=== PATIENT | female | born 1945 | race Caucasian/White ===

== ENCOUNTER 2019-07-22 18:17 | Observation (INO) ==
[2019-07-22] MEDS ORDERED: *HR* Metoprolol 5 MG/5 ML VIAL IVP ONE (18:48)
--- NOTE | 2019-07-22 19:04 | Emergency Department Note ---
Disposition Clinical Impression: Atrial fibrillation with RVR Hypertension Qualifiers: Hypertension type: unspecified Qualified Code(s): I10 - Essential (primary) hypertension Disposition: Admitted As Inpatient Condition: Good Forms: ED Satisfaction Letter Time of Disposition: 20:38 Arrhythmia/Palpitations HPI - General Chief Complaint: ED Arrhythmia/Palpitations Stated Complaint: A-Fib Time Seen by Provider: 07/22/19 18:24 Source: patient Mode of arrival: private vehicle Limitations: no limitations Nursing Notes Reviewed: Yes Vital Signs Reviewed: Yes - History of Present Illness HPI Narrative: 73-year-old female with a history of hyperlipidemia, prior DVT and PE on Coumadin with a [place] filter placement presents with a complaint of high blood pressure, dizziness and new onset atrial fibrillation. Patient states that her blood pressure has been elevated at home of 170/120. Also reports she felt lightheaded. She saw someone today because for elevated blood pressure and was found to be in A. fib. She was sent here for further management. She reports some chest pain that she describes as heartburn. Denies any shortness of breath. She has a history of DVT and PEs on anticoagulation with a filter in place. No other complaints. Pt Subjective Complaint: atrial fibrillation Associated symptoms: Reports: chest pain. Denies: shortness of breath, nausea, vomiting - Related Data Previous Rx's Medication Instructions Recorded HYDROcodone/Acet 5/325 mg [[place] 1 tab PO Q6H PRN 3 Days #12 tab 05/31/18 5-325 mg] Allergies Allergy/AdvReac Type Severity Reaction Status Date / Time No Known Allergies Allergy Verified 05/31/18 19:27 All systems ED: reviewed and negative except as stated. Constitutional: Denies: fever Cardiovascular: Reports: chest pain. Denies: palpitations Respiratory: Denies: cough, dyspnea Gastrointestinal: Denies: abdominal pain, nausea, vomiting Past Medical History - Past Medical History Attestation: Yes The following information was validated with the patient. Source: patient Medical history: Reports: DVT, pulmonary embolus Psychiatric history: Reports: no psych history - Social History Smoking Status: Never smoker Smokeless Tobacco Status: No Alcohol use: Reports: none Drug use: Reports: none Physical Exam - General Limitations: no limitations General appearance: alert, in no apparent distress - Head Head exam: atraumatic, normocephalic, normal inspection - Eye Eye exam: Present: normal appearance - ENT ENT exam: normal exam - Neck Neck exam: Present: normal inspection - Chest Chest inspection: Present: normal inspection, symmetric chest wall rise - Respiratory Respiratory exam: Present: normal lung sounds bilaterally - Cardiovascular Cardiovascular exam: Present: regular rate, irregular rhythm - Abdominal Exam Abdominal exam: Present: soft, Non-Tender. Absent: tenderness, distention, guar ding, rigidity - Extremities Exam Extremities exam: Present: normal inspection, full ROM - Expanded Upper Extremity Exam Shoulder exam: Present: normal inspection, full ROM Arm exam: Present: normal inspection, full ROM Elbow exam: Present: normal inspection, full ROM Forearm/Wrist exam: Present: normal inspection, full ROM Hand exam: Present: normal inspection, full ROM - Expanded Lower Extremity Exam Hip/Pelvis exam: Present: normal inspection, full ROM Upper leg exam: Present: normal inspection, full ROM Knee exam: Present: normal inspection, full ROM Lower leg exam: Present: normal inspection, full ROM Ankle exam: Present: normal inspection, full ROM Foot/toe exam: Present: normal inspection, full ROM - Skin Skin exam: Present: warm, dry Course Course Narrative: Seen and examined. Vital signs reviewed. Her heart rate is fluctuating 80s to 140s. Her blood pressure started to be hypertensive here. We will give her a dose of Lopressor, EKG, chest x-ray, labs. - Reevaluation(s) Reevaluation #1: Labs are grossly unremarkable. INR is therapeutic. Chest x-ray without acute findings. Patient has remained rate controlled here after Lopressor. She is in to agreement with admission. Vital Signs Temperature 98.4 F 07/22/19 18:25 Pulse Rate 104 07/22/19 18:25 Respiratory Rate 18 07/22/19 18:25 Blood Pressure 171/116 07/22/19 18:25 O2 Sat by Pulse Oximetry 98 07/22/19 18:25 Temperature 98.4 F 07/22/19 18:25 Pulse Rate 86 07/22/19 18:59 Respiratory Rate 17 07/22/19 18:59 Blood Pressure 149/92 07/22/19 18:59 O2 Sat by Pulse Oximetry 96 07/22/19 18:59 Oxygen Delivery Oxygen Delivery Room Air Arrhythmia/Palpitations - [facility] Narrative Medical decision making narrative: 73-year-old female presenting with new-onset atrial fibrillation. She is well- appearing here, stable with 5 mg of Lopressor given for tachycardia which is currently rate controlled. Labs are grossly unremarkable. Patient is admitted to the hospitalist service for A. fib RVR, hypertension, new onset A. fib. - Lab Data Lab results reviewed: Yes I reviewed the patient's lab results. Result diagrams: 07/22/19 18:33 07/22/19 18:33 Lab Results 07/22/19 07/22/19 07/22/19 Range/Units 18:33 18:33 18:33 WBC 6.4 (4.3-11.1) K/mcL RBC 4.60 (3.82-4.97) M/mcL Hgb 13.6 (11.5-15.4) g/dL Hct 42.6 (35.3-44.9) % MCV 92.6 (83.0-100.0) fL MCH 29.6 (28.0-33.3) pg MCHC 31.9 (31.6-35.5) g/dL RDW 14.1 (11.5-14.5) % Plt Count 166 (140-400) K/mcL MPV 9.7 (9.4-12.4) fL Immature Gran % 0.3 (0-4) % Seg Neutrophils % 63.8 % Lymphocytes % 23.7 % Monocytes % 10.5 % Eosinophils % 1.1 % Basophils % 0.6 % Neutrophils # 4.1 (1.6-8.9) K/mcL Lymphocytes # 1.5 (0.6-4.6) K/mcL Monocytes # 0.7 (0.0-1.3) K/mcL Eosinophils # 0.1 (0.0-0.6) K/mcL Basophils # 0.0 (0.0-0.2) K/mcL PT 28.5 H (9.4-12.1) Seconds INR 2.5 APTT 32.6 (26.0-36.0) Seconds Sodium 142 (136-145) mEq/L Potassium 3.8 (3.5-5.1) mEq/L Chloride 106 (98-107) mEq/L Carbon Dioxide 28 (23-29) mEq/L BUN 16 (8-23) mg/dL Creatinine 0.79 (0.60-1.20) mg/dL Est GFR ( Amer) > 60 (> 60) Est GFR (Non-Af Amer) > 60 (> 60) BUN/Creatinine Ratio 20 (6-26) Glucose 91 (70-105) mg/dL Calculated Osmolality 295 (280-300) Calcium 9.9 (8.6-10.3) mg/dL Troponin I < 0.03 (< 0.04) ng/mL TSH 2.839 (0.340-5.600) mcIU/mL - Radiology Data Radiology results reviewed: Yes I reviewed the patient's radiology results. Chest X-Ray 07/22/19 18:33 IMPRESSION: 1. Unchanged enlargement of the cardiomediastinal silhouette. 2. No focal consolidation, pneumothorax, or significant pleural effusion. D/ / Jhonatan Mar MD / Jhonatan Mar MD Interpreting Provider: Jhonatan Mar MD - EKG Data EKG attestation: Yes I reviewed and interpreted this EKG. EKG results narrative: EKG demonstrates atrial fibrillation with rate of 98 beats or minute. Normal axis. Normal intervals. Normal R-wave progression. No gross ST elevations or depressions. No acute ischemic findings. S.Jessica.Mio - Ronda.[email or web address] Situation: Demographics, MOA Background: Presenting Complaint, Relevant PMH, Meds, & Allergies Assessment: Vital Signs, Course and respsone to treatment, Exam Concerns, Patient/Family Expectation, Pertinant Lab Results Recommendation: Barrier(s) to disposition, Recommendation based on pending studies, treatments, or consults S.B.A.RBehzad Report Given to: Dr. Dahlia Jack Repor Time: 20:39
[2019-07-22 19:17] LABS: Basophils % 0.6 %; Eosinophils # 0.1 K/mcL (0.0-0.6); Eosinophils % 1.1 %; Hematocrit 42.6 % (35.3-44.9); Hemoglobin 13.6 g/dL (11.5-15.4); Immature Granulocytes % 0.3 % (0-4); Lymphocytes # 1.5 K/mcL (0.6-4.6); Lymphocytes % 23.7 %; Mean Corpuscular HGB Conc 31.9 g/dL (31.6-35.5); Mean Corpuscular Hemoglobin 29.6 pg (28.0-33.3); Mean Corpuscular Volume 92.6 fL (83.0-100.0); Mean Platelet Volume 9.7 fL (9.4-12.4); Monocytes # 0.7 K/mcL (0.0-1.3); Monocytes % 10.5 %; Neutrophils # 4.1 K/mcL (1.6-8.9); Platelet Count 166 K/mcL (140-400); Red Cell Distribution Width 14.1 % (11.5-14.5); Segmented Neutrophils % 63.8 %; White Blood Count 6.4 K/mcL (4.3-11.1)
[2019-07-22 19:24] LABS: INR 2.5; Prothrombin Time 28.5 Seconds (9.4-12.1)
[2019-07-22 19:27] LABS: Activated Partial Thrombo Time 32.6 Seconds (26.0-36.0)
[2019-07-22 19:41] LABS: BUN/Creatinine Ratio 20 (6-26); Blood Urea Nitrogen 16 mg/dL (8-23); Calcium 9.9 mg/dL (8.6-10.3); Carbon Dioxide 28 mEq/L (23-29); Chloride 106 mEq/L (98-107); Glucose 91 mg/dL (70-105); Osmolality,Calculated 295 (280-300); Potassium 3.8 mEq/L (3.5-5.1); Sodium 142 mEq/L (136-145); Troponin I < 0.03 ng/mL (< 0.04); eGFR For African Americans > 60 (> 60); eGFR For Non-African Americans > 60 (> 60)
[2019-07-22 19:54] LABS: Thyroid Stimulating Hormone 2.839 mcIU/mL (0.340-5.600)
[2019-07-22] MEDS ORDERED: Ondansetron ODT 4 MG TAB.RAPDIS SL PRN (21:53)
[2019-07-22] MEDS ORDERED: Naloxone 0.4 MG/ML INJ IVP PRN (21:53)
--- NOTE | 2019-07-22 22:49 | Internal Med History&Physical ---
Date of Encounter: 07/22/19 Time of Encounter: 22:41 Internal Medicine - H&P: HPI Chief complaint: dizziness, and elevated BP Admitted From: Home Plans for Post Hospital Care: Home History of present illness: Ms. Sandoval is a 73 year old pleasant functional female presented to the ED for dizziness and elevated BP sent from PCP. 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 Patient states that Sunday patient started having dizziness that is sudden constant progressive without nausea or vomiting despite rest without alleviation or exacerbating factor. Patient subsequently the next few days checked her blood pressure was noted to be elevated 190/160s. Patient reported baseline blood pressure tends to be low. Patient states that she continues to have unchanged oral intake diet and is compliant with her medication except for simvastatin which she takes 3 times a week. Patient otherwise denies any history of ACS, A. fib or arrhythmia. Patient reported family history of cardiac disease MRI from mother and father's side. Patient is a nonsmoker, lives independently at home able to do IADLs. Reported no etoh/drug usage and no history of syncope, CVA in the past. Patient denied any changes in medication, confusion, focal deficits, recent surgeries(except for cataract 1 weeks ago), travels, shortness of breath, chest pain, diaphoresis. Patient reported lower extremity swelling BL that is chronic and has been using compresses during the day that keeps it controlled. Personally Reviewed patient's past medical, surgical, family and social history. Personally obtained history from family and patient. CODE STATUS was discussed and the patient proceeded with a full code Past Med Surg Social Fam HX - Past Medical History Medical history: DVT, pulmonary embolus Psychiatric history: no psych history - Past Surgical History Additional surgical history: cataracts - Social History Smoking Status: Never smoker Smokeless Tobacco Status: No Alcohol use: none Drug use: none Internal Medicine - H&P: Meds Simvastatin [Zocor] 40 mg PO MOWEFR 07/22/19 [History] Warfarin Sodium 2.5 mg PO MOTUWEFRSA 07/22/19 [History] Warfarin Sodium 5 mg PO SUTH 07/22/19 [History] Allergy/AdvReac Type Severity Reaction Status Date / Time No Known Allergies Allergy Verified 07/22/19 21:03 All Systems PM: A 10-system review of systems was performed and is negative for pertinent findings except as documented above in the HPI. Review of systems: General: No unintentional weightloss, No fever, No night sweats. Head: No headahce, No injury. Ears: No discharge, No earache Eyes: No drainage, No eye pain Mouth and Throat: No new ulcers, No pain Nose and Sinus: No new congestion, No pain, Respiratory: No cough, No sputum production, No dyspnea Cardiovascular: No chest pain, No palpitations. Gastrointestinal: No nausea, No vomiting. No abdominal pain Genital Tract: No discharge, No pain Urinary Tract: No dysuria, No discharge. MSK: No new/worsening joint pain . + intermitted back right side mid back pain muscle ache. Endocrine: No cold intolerance, No polyuria Psychological: No suicidal, No homocidal ideation. - Constitutional Vitals: Temp Pulse Resp BP Pulse Ox 98.3 F 102 16 173/99 96 07/22/19 22:04 07/22/19 22:04 07/22/19 22:04 07/22/19 22:04 07/22/19 22:04 Exam: General Appearance: Appearing as age, well-nourished in no acute distress. Head: Atraumatic normocephalic Skin: Normal texture, normal turgor, warm, dry. Eyes: Conjunctivae not pale with no erythema, drainage, or ulcers. Anicteric. Neck: No Lymphadenopathy in the anterior/posterior cervical chain. No thyromegaly, masses or ulcers. Trachea midline. Heart: irregulary irregular, grade 2 systolic murmurs. Capillary refill 3 s econds Lungs: No accessory muscle usage, lungs clear to auscultation bilaterally, no wheezes or crackles. Extremities: minimal pitting edema, with no clubbing, cyanosis, or ulcers. Abdomen: Non-distended, normoactive bowel sounds. non-tender to palpation, no hepatomegally. No guarding. Neuro: AOx3 with no new focal deficits. MSK: Strength 5/5 Upper extremity equal bilaterally. Strength 5/5 Lower e xtremity equal bilaterally Internal Med - H&P Results - Labs CBC & Chem 7: 07/22/19 18:33 07/22/19 18:33 Labs: Short CBC 07/22/19 Range/Units 18:33 WBC 6.4 (4.3-11.1) K/mcL Hgb 13.6 (11.5-15.4) g/dL Hct 42.6 (35.3-44.9) % Plt Count 166 (140-400) K/mcL Neutrophils # 4.1 (1.6-8.9) K/mcL BMP 07/22/19 18:33 Sodium 142 Potassium 3.8 Chloride 106 Carbon Dioxide 28 BUN 16 Creatinine 0.79 Glucose 91 Calcium 9.9 Cardiac Enzymes 07/22/19 Range/Units 18:33 Troponin I < 0.03 (< 0.04) ng/mL - Impressions ITS Impressions Chest X-Ray 07/22/19 18:33 IMPRESSION: 1. Unchanged enlargement of the cardiomediastinal silhouette. 2. No focal consolidation, pneumothorax, or significant pleural effusion. D/ / Jhonatan Mar MD / Jhonatan Mar MD Interpreting Provider: Jhonatan Mar MD - Summary of Assessment and Plan Summary of Assessment and Plan: 1.New-onset uncontrolled atrial fibrillation: Improved with IV metoprolol 5 mg. Continue telemetry. Patient currently on Coumadin therapeutic with INR of 2.5. Echocardiogram, and cardiology consultation. TSH, troponin normal. Mg, phosphorus, T3-T4 ordered 2. Hypertension uncontrolled new-onset: No organ damage noted. back pain sudden severe that occurred yesterday and mediastinal widening raises concern for dissection. ordered D-dimer to rule out. If positive will get CTA. Started patient on HTCZ and carvidolol. 3.Hyperlipidemia: Lipid panel ordered. Continue to monitor 4.History of DVT/PE and genetic disorder(unclear otherwise): Requesting outside records to check clotting disorder. On chronic coumadin continue to be therapeutic. 5.Class 2 obesity: nutrition consultation for weightloss. A1c orderred. DVT prophylaxis: patient is on systemic anticoagulation. Dispo: observation likely dc in <2 days. - Time Spent With Patient Total time spent is greater than 36 minutes 50% in coordination of care (as documented) at patient's floor/unit and/or counseling patient: Greater than 35 minutes - VTE Reasons for not Prescribing Prophylaxis: Not indicated-Anticoagulated or INR therapeutic
[2019-07-23] MEDS ORDERED: *HR* Warfarin 2.5 MG TABLET PO ONE (00:30)
[2019-07-23 04:29] LABS: INR 2.3; Prothrombin Time 26.7 Seconds (9.4-12.1)
[2019-07-23 04:47] LABS: BUN/Creatinine Ratio 20 (6-26); Blood Urea Nitrogen 15 mg/dL (8-23); Calcium 8.8 mg/dL (8.6-10.3); Carbon Dioxide 27 mEq/L (23-29); Chloride 107 mEq/L (98-107); Glucose 98 mg/dL (70-105); Osmolality,Calculated 297 (280-300); Phosphorous 3.9 mg/dL (2.7-4.5); Potassium 3.7 mEq/L (3.5-5.1); Sodium 143 mEq/L (136-145); Troponin I < 0.03 ng/mL (< 0.04); eGFR For African Americans > 60 (> 60); eGFR For Non-African Americans > 60 (> 60)
[2019-07-23 04:48] LABS: Chol/HDL Ratio 2.9 (0-4.9)
[2019-07-23 04:53] LABS: Triiodothyronine (T3) Free 2.55 pg/mL (2.50-3.90)
[2019-07-23] MEDS ORDERED: hydroCHLOROthiazide 25 MG TABLET PO SCH (09:00)
[2019-07-23 09:14] LABS: Estimated Average Glucose 134 mg/dl
[2019-07-23] MEDS ORDERED: Metoprolol XL (24 HR) Succ 25 MG TAB.ER.24H PO SCH (10:15)
--- NOTE | 2019-07-23 10:39 | Cardiology Consult Note ---
<Jey Sutherland A - Last Filed: 07/23/19 11:31> Date of Encounter: 07/23/19 Time of Encounter: 09:30 Assessment and Plan (1) Atrial fibrillation with RVR Current Visit: Yes Status: Acute 1. New onset A-fib; ave HR 75, a-fib on telemetry; 2. EKG shows A-fib currently compared to previous EKG on 08/16/2012 EKG which showed S.R. 3. TSH WNLs; trops negative x 2; renal function WNLs; chest x-ray unchanged enlargement of the cardiomediastinal silhouette. 4. Start Toprol daily. 5. Echo ordered. 6. CHADs-VASc= 5; On Coumadin for PE/DVT prophylaxis; continue to hold Coumadin pending stress test results. INR 2.3; recommend therapeutic Lovenox when INR <2. 7. Will add home simvastatin. 8. Will order stress test pharm nuc. 9. Remain NPO at this time. 10. Discussed and reviewed plan with Dr. Perez, patient, and spouse. (2) Hypertension Current Visit: Yes Status: Inactive 1. BP readings trending down; last 100s/70; will stop coreg. 2. Will start toprol daily. 2. Will trend BP Q4 hours. 4. Discussed and reviewed with Dr. Perez. Qualifiers: Hypertension type: unspecified Qualified Code(s): I10 - Essential (primary) hypertension Discussion w patient/family: The assessment and plan as outlined above was discussed with the patient and/or family members who expressed understanding and agreement. All questions were answered. Thank you for involving us in the care of your patient. Please call with any questions. History of Present Illness Consult date: 07/23/19 Consult reason: A-fib Chief complaint: Dizziness History of present illness: Ms. 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 Presents with s/s of dizziness x 5 days, chronic posterior aching thoracic pain relieved with rest. Mild SOB with continued exertion. Denies chest pain, SOB, diaphoresis, n/v/ n/t. Denies radiation, alleviating/ aggravating factors. Admits to elevated BP readings at home 170s/120s with baseline tending to be low. Denies other changes in behavior. Compliant with medications and takes Coumadin for DVT/PE prophylaxis. Currently, denies chest pain, back pain, dizziness at rest. Past Med Surg Social Fam HX - Past Medical History Attestation: Yes The following information was validated with the patient. Source: patient Medical history: DVT, pulmonary embolus Psychiatric history: no psych history - Past Surgical History Additional surgical history: cataracts - Social History Smoking Status: Never smoker Smokeless Tobacco Status: No Alcohol use: none Drug use: none - Family History Sister Hx Family Cardiac Disorders: Yes Brother Hx Family Cardiac Disorders: Yes Medications and Allergies Simvastatin [Zocor] 40 mg PO MOWEFR 07/22/19 [History] Warfarin Sodium 2.5 mg PO MOTUWEFRSA 07/22/19 [History] Warfarin Sodium 5 mg PO SUTH 07/22/19 [History] Allergy/AdvReac Type Severity Reaction Status Date / Time No Known Allergies Allergy Verified 07/22/19 21:03 All Systems Review: The remainder of the systems were reviewed and are negative - EENT Eyes: no blurred vision - Cardiovascular Cardiovascular: as per HPI Physical Examination Vital Signs, Last 4 Hours Temp Pulse Resp BP Pulse Ox 07/23/19 07:02 98.1 F 72 16 108/70 95 General: Conversant, No Apparent Distress HEENT: Atraumatic, Normocephaly, Mucus Membranes Moist Neck: No JVD, Normal carotid pulses Cardiac: Other (irregularly irregular) Lungs: Normal Breath Sounds, No Wheeze, Rales, Rhonchi Neuro: Alert and responsive, No focal deficits noted Abdomen: Soft, Non-Tender Skin: No rashes noted on visualized skin Musculoskeletal: No Chest Wall Tenderness Extremities: Other (1 + pitting edema bilat lower extremeties. ) Results 07/22/19 18:33 07/23/19 03:35 Lab Results Laboratory Tests 07/22/19 07/22/19 07/23/19 18:33 23:38 03:35 INR 2.3 D-Dimer 358 Potassium BUN Creatinine Est GFR (Non-Af Amer) Magnesium TSH 2.839 07/23/19 03:35 INR D-Dimer Potassium 3.7 BUN 15 Creatinine 0.75 Est GFR (Non-Af Amer) > 60 Magnesium 2.0 TSH Laboratory Tests 07/22/19 07/23/19 07/23/19 18:33 03:35 09:31 Troponin I < 0.03 < 0.03 < 0.03 Impressions Selected Entries 07/22/19 18:25 07/22/19 18:59 07/22/19 22:04 Blood Pressure 171/116 149/92 173/99 07/23/19 03:48 07/23/19 07:02 Blood Pressure 121/78 108/70 Chest X-Ray 07/22/19 18:33 IMPRESSION: 1. Unchanged enlargement of the cardiomediastinal silhouette. 2. No focal consolidation, pneumothorax, or significant pleural effusion. D/ / Jhonatan Mar MD / Jhonatan Mar MD Interpreting Provider: Jhonatan Mar MD Active Medications Docusate Sodium (Colace) 100 mg PO BID [facility] Stop: 01/22/20 09:01 Metoprolol Succinate (Toprol Xl) 12.5 mg PO DAILY [facility] Stop: 01/22/20 10:16 Naloxone HCl (Narcan) 0.4 mg IVP Q2MPRN PRN PRN Reason: SEE COMMENTS Stop: 01/21/20 21:54 Ondansetron HCl (Zofran Odt) 4 mg SL Q8HR PRN PRN Reason: Nausea And Vomiting Stop: 01/21/20 21:54 - Imaging and Cardiology Chest Xray: report reviewed Stress Test: pending Echo: pending - EKG Interpretation EKG results cardiology: no diagnostic ischemia Consult Discharge Plan - Plan Referrals: Catie Cobb CNP [Primary Care Provider] - 07/29/19 1:00 pm () CHADS2-VASC Score - Score Age: 65-74 Sex: Female CHF History: No Hypertension history: Yes Stroke/TIA/Thromboembolism Hx: Yes Vascular disease history: No Diabetes history: No (currently on Coumadin) Score: 5 HAS-BLED Score - Score Hypertension: Uncontrolled,>160 mmhg systolic Elderly: Age>65 years Medication usage predisposing to bleeding: Antiplatelet agents, NSAIDs, Anticoagulants Score: 3 <Flaco Perez - Last Filed: 07/23/19 14:58> Date of Encounter: 07/23/19 - Attending Attestation I have personally performed a face to face evaluation on this patient. I have reviewed and agree with the care plan. History and Exam by me shows: 73-year-old female with history of DVT/PE, family history of coronary artery disease, borderline ST changes on EKG slightly elevated flat troponins. She complains of atypical type chest pain with exertional shortness of breath. Risks benefits and alternatives discussed patient regards to noninvasive ischemic workup and she agrees to proceed with a nuclear stress test. Assessment and Plan Discussion w patient/family: The assessment and plan as outlined above was discussed with the patient and/or family members who expressed understanding and agreement. All questions were answered. Thank you for involving us in the care of your patient. Please call with any questions. History of Present Illness History of present illness: Ms. Sandoval is a 73 year old female All Systems Review: The remainder of the systems were reviewed and are negative Physical Examination Vital Signs, Last 4 Hours Temp Pulse Resp BP Pulse Ox 07/23/19 13:22 99.0 F 84 18 148/88 96 Results 07/22/19 18:33 07/23/19 03:35 Lab Results 07/22/19 07/22/19 07/22/19 18:33 18:33 18:33 WBC 6.4 Hgb 13.6 Hct 42.6 Plt Count 166 INR 2.5 APTT 32.6 D-Dimer Sodium 142 Potassium 3.8 Chloride 106 Carbon Dioxide 28 BUN 16 Creatinine 0.79 Glucose 91 Calcium 9.9 Magnesium Troponin I < 0.03 TSH 2.839 07/22/19 07/23/19 07/23/19 23:38 03:35 03:35 WBC Hgb Hct Plt Count INR 2.3 APTT D-Dimer 358 Sodium 143 Potassium 3.7 Chloride 107 Carbon Dioxide 27 BUN 15 Creatinine 0.75 Glucose 98 Calcium 8.8 Magnesium 2.0 Troponin I < 0.03 TSH 07/23/19 09:31 WBC Hgb Hct Plt Count INR APTT D-Dimer Sodium Potassium Chloride Carbon Dioxide BUN Creatinine Glucose Calcium Magnesium Troponin I < 0.03 TSH
[2019-07-23] MEDS ORDERED: Regadenoson 0.4 MG/5 ML SYRINGE IVP ONE (11:11)
[2019-07-23] MEDS ORDERED: hydroCHLOROthiazide 25 MG TABLET PO ONE (11:12)
[2019-07-23 16:17] VITALS: BP 124/89
--- NOTE | 2019-07-23 16:20 | Discharge Summary ---
- NOTES TO OUTPATIENT PROVIDER Notes to Outpatient Provider: Follow up with PCP in one week. Follow-up with cardiology in 1-2 weeks. Please start taking metoprolol XL 12.5 mg PO daily Date of Encounter: 07/23/19 Time of Encounter: 16:17 - Discharge Diagnosis (1) Atrial fibrillation with RVR Priority: Primary Status: Acute (2) Hypertension Priority: Secondary Status: Inactive Qualifiers: Hypertension type: unspecified Qualified Code(s): I10 - Essential (primary) hypertension (3) PE (pulmonary thromboembolism) Priority: Secondary Status: Acute Hospital course: Ms. 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 Patient also happened to have new onset acute a fib with RVR which improved with IV Lopressor in the ER. She was admitted in the hospital and placed on manager cardiac cath. Her serial troponin came back as negative. Patient was placed on beta tim Metoprolol XL 12.5mg Po Daily. She was evaluated by crew director who did nuclear stress test which came back as negative for ischemia/infarction. Currently her heart rate well controlled with metoprolol however patient is still in a fib. Patient is asymptomatic now. Will discharge her home in a stable condition today - Time Spent with Patient Total time spent providing and/or coordinating discharge services: - Discharge Medications Prescriptions: New Metoprolol XL (24 HR) Succ [Toprol Xl] 12.5 mg PO DAILY #15 tab.er.24h Continued Warfarin Sodium 5 mg PO SUTH Warfarin Sodium 2.5 mg PO MOTUWEFRSA Simvastatin [Zocor] 40 mg PO MOWEFR Home Medications: Simvastatin [Zocor] 40 mg PO MOWEFR 07/22/19 [History] Warfarin Sodium 2.5 mg PO MOTUWEFRSA 07/22/19 [History] Warfarin Sodium 5 mg PO SUTH 07/22/19 [History] Metoprolol XL (24 HR) Succ [Toprol Xl] 12.5 mg PO DAILY #15 tab.er.24h 07/23/19 [Rx] Allergies/Adverse Reactions: Allergy/AdvReac Type Severity Reaction Status Date / Time No Known Allergies Allergy Verified 07/22/19 21:03 Date of admission: 07/22/19 20:56 Primary care physician: Catie Cobb CNP Consults: 07/22/19 23:13 Consult to Nutrition [CONS] Routine Comment: obesity Consulting Provider: NUTRITION Reason for Dietary Consult: Other Other:: obesity 07/23/19 06:00 Consult to Cardiology [CONS] Routine Comment: Consulting Provider: Card[facility] [place] Reason for Consult: new onset A.fib. Call Completed: No - Constitutional Vitals: Temp Pulse Resp BP Pulse Ox 99.0 F 84 18 148/88 96 07/23/19 13:22 07/23/19 13:22 07/23/19 13:22 07/23/19 13:22 07/23/19 13:22 General appearance: Present: cooperative, A&O X 3, no acute distress, answers questions appropriately Exam: Gen: Alert, awake, Oriented to time,place and person Chest: Diminished breath sounds B/L, No wheezing, No crackles, No rales Heart: S1S2+ Afib, rate controlled, No murmurs Abd: Soft, NT, BS +, No organomegaly Ext: No edema, pulses are palpable, No calf tenderness Neuro : No acute focal neuro deficits noticed Skin: No rash. - Patient Status Disposition: Home, Self-Care Condition: Good Overall status at discharge: patient is back to baseline - Discharge Instructions Instructions: Atrial Fibrillation (DC) Follow Up With: Catie Cobb CNP [Primary Care Provider] - 07/29/19 1:00 pm () Flaco Perez [Partnered Physician] - (Appointment has been requested. Office will be call with appointment date and time.) - Diet and Activity Activity: increase activity as tolerated Diet: low salt diet - VTE Reasons for not Prescribing Prophylaxis: Not indicated-Anticoagulated or INR therapeutic
--- NOTE | 2019-07-24 11:33 | Electrocardiograph Report ---
[place] [facility] Test Date: 2019-07-22 Pat Name: Gewndolyn Sandoval Department: [id number] Room: 3B34 Gender: F [employer]er: : 1945 Requested By: Reed Bryant Order Number: [id number] Reading MD: Selvin Mims Measurements Intervals May Rate: 98 P: DC: QRS: 14 QRSD: 99 T: 56 QT: 370 QTc: 451 Interpretive Statements Atrial fibrillation Low voltage, precordial leads Electronically Signed On 07-24-2019 11:32:13 EDT by Selvin Mims
== END 2019-07-23 17:21 | disposition home or self-care (01) ==
LOC: 3BNU 18:17 → EMEROOARM 18:17 → SUATTDRO 20:56 → 3BNU 21:50
PROVIDERS: ADMIT Family Medicine; ATTEND Family Medicine